=== PATIENT | female | born 2000 | race Caucasian/White ===

== ENCOUNTER → 2020-01-15 | Outpatient (CLI) | payer BC ==
--- NOTE | 2020-01-15 16:10 | Diagnostic Imaging Report ---
PROCEDURE: US Non-ob pelvis comp/trans. TECHNIQUE: Multiple real-time grayscale images were obtained of the pelvis in various projections endovaginally. Transabdominal imaging was also performed. INDICATION: IUD complication. FINDINGS: Uterus measures 6.8 x 3.5 x 4.5 cm. Endometrium is 3 mm in thickness. IUD is centered within the endometrial canal. No myometrial mass is detected. Right ovary measures 3.6 x 2.1 x 2.7 cm and the left ovary measures 3.5 x 2.3 x 2.3 cm. Both ovaries contain follicles. There is blood flow to both ovaries. No adnexal mass or free fluid is seen apart from a small amount in the posterior cul-de-sac. IMPRESSION: Satisfactorily located IUD. No acute abnormality is detected. Dictated by: Dictated on workstation # [id number]
== END ==
LOC: RAD 11:22
PROVIDERS: ATTEND Obstetrics & Gynecology
DX: T83.39XA Other mechanical complication of intrauterine contraceptive device, initial encounter (principal); R10.2 Pelvic and perineal pain
CPT/HCPCS: 76830; 76856

== ENCOUNTER 2020-08-22 02:49 | Emergency (ER) | payer BC ==
[~2020-08-22] VITALS: Ht 154.9 cm; Wt 58.1 kg
[2020-08-22] MEDS ORDERED: HYDROcodone/APAP 5 MG/325 MG (LORTAB) TAB PO ONE (03:45)
[2020-08-22] MEDS ORDERED: KETOROLAC 30 MG/ML VIAL IM ONE (03:45)
[2020-08-22] MEDS ORDERED: BENZONATATE 100 MG (TESSALON) CAPSULE PO ONE (03:45)
[2020-08-22] MEDS ORDERED: RX-ALBUTEROL INHALER (VENTOLIN HFA) 18 GM IH STA (03:46)
[2020-08-22] MEDS ORDERED: PROMETHAZINE/ CODEINE SYRUP 5 ML UDC PO ONE (04:00)
[2020-08-22] MEDS ORDERED: PROM5SYR PO (05:48)
[2020-08-22] MEDS ORDERED: BENZ100C18 PO (05:48)
[2020-08-22] MEDS ORDERED: AZIT250T12 PO (05:48)
--- NOTE | 2020-08-22 05:49 | ED Respiratory ---
General Chief Complaint: Respiratory Problems Stated Complaint: COUGH,SOB Nursing Triage Note: PT ARRIVED BY PRIVATE VEHICLE WITH CHIEF COMPLAINT OF COUGH AND SOB. PT WAS ALERT, ORIENTED X 4 AND AMBULATORY. PT STATED THAT HER COUGH STARTED WEEKS AGO WITH ALLERGIES, BUT WORSE TWO DAYS AGO. COUGH IS CONSTANT AND PRODUCTIVE CLEAR WITH SNOT PT STATED. PT HAS TRIED COUGH SYRUP, COUGH DROPS, NASAL SPRAYS AND NOTHING IS WORKING. PT HAS CHEST PAIN WHEN BREATHING WITH PAIN AT A 6. PT VAPES DAILY, HAS PMH OF ANXIETY AND HX OF ASTHMA A CHILD. PT HAD TONSILS REMOVED. PT'S VITAL SIGNS WERE DONE ON ARRIVAL AND GIVEN BASIN, BECAUSE OF HACKING UP MUCOUS. Source: patient Exam Limitations: no limitations History of Present Illness Date Seen by Provider: Aug 23, 2020 Time Seen by Provider: 03:35 Initial Comments This 20-year-old young lady presents to the emergency room with persistent cough, shortness of breath, and pleuritic type central chest pain for about the past week. She is afebrile. She has been unable to sleep due to the symptoms. She has tried multiple hgyp-pdp-otdbkht medicaticess. She is nauseated and gagging with the cough. Cough is very disruptive, interfering with her speech and the exam. She does not have any albuterol at home. She is observed to sometimes be coughing up thick mucus/sputum and occasionally regurgitating with posttussive gagging. Allergies and Home Medications Allergies Coded Allergies: No Known Drug Allergies (Unverified , 08/22/20) Home Medications Azithromycin 250 Mg Tablet, 250 MG PO UD TAKE 2 TABLETS ON DAY ONE THEN TAKE 1 TABLET DAILY FOR FOUR MORE DAYS Prescribed by: JEWEL AVILA on 08/22/20 0548 Benzonatate 100 Mg Capsule, 200 MG PO TID Prescribed by: JEWEL AVILA on 08/22/20 0548 Promethazine HCl/Codeine 5 Ml Syrup, 5 ML PO Q6H PRN for COUGH Prescribed by: JEWEL AVILA on 08/22/20 0549 Patient Home Medication List Home Medication List Reviewed: Yes Review of Systems Review of Systems Constitutional: no symptoms reported EENTM: no symptoms reported Respiratory: see HPI Cardiovascular: no symptoms reported Gastrointestinal: no symptoms reported Genitourinary: no symptoms reported : No Musculoskeletal: no symptoms reported Skin: no symptoms reported Psychiatric/Neurological: No Symptoms Reported Hematologic/Lymphatic: No Symptoms Reported Immunological/Allergic: no symptoms reported Past Mrrezit-Wpwwli-Rahtuc Hx Past Med/Social Hx: Reviewed Nursing Past Med/Soc Hx Patient Social History Alcohol Use: Occasionally Uses Recreational Drug Use: No Smoking Status: Current Everyday Smoker Type Used: Electronic/Vapor 2nd Hand Smoke Exposure: Yes Recent Foreign Travel: No Contact w/Someone Who Travel: No Recent Infectious Disease Expo: No Recent Hopitalizations: No Physical Abuse: No Sexual Abuse: No Mistreated: No Fear: No Seasonal Allergies Seasonal Allergies: Yes Past Medical History Surgeries: Yes Tonsillectomy Respiratory: Yes Asthma Cardiac: No Neurological: No : No Reproductive Disorders: No Genitourinary: Yes Kidney Stones Gastrointestinal: No Musculoskeletal: No Endocrine: No HEENT: No Cancer: No Psychosocial: Yes Anxiety Integumentary: No Blood Disorders: No Physical Exam Vital Signs - First Documented 08/22/20 03:00 Temp 36.3 Pulse 82 Resp 16 B/P (MAP) 136/81 (99) Pulse Ox 98 O2 Delivery Room Air Capillary Refill : Less Than 3 Seconds Height: '" Weight: lbs. oz. kg; 24.00 BMI Method: General Appearance: WD/WN, no apparent distress HEENT: PERRL/EOMI, normal ENT inspection, TMs normal, pharynx normal Neck: normal inspection Respiratory: lungs clear, normal breath sounds, no respiratory distress, no accessory muscle use, other (hacking, disruptive cough. Prolonged expiratory phase.) Cardiovascular: regular rate, rhythm, no edema, no murmur Gastrointestinal: normal bowel sounds, non tender, soft Extremities: normal inspection, no pedal edema Neurologic/Psychiatric: cutter in II-XII nml as tested, no motor/sensory deficits, alert, normal mood/affect, oriented x 3 Skin: normal color, warm/dry Progress/Results/Core Measures Suspected Sepsis Recent Fever Within 48 Hours: No Infection Criteria Present: Suspected New Infection New/Unexplained Altered Menta: No Sepsis Screen: No Definite Risk SIRS Temperature: Pulse: 82 Respiratory Rate: 16 Blood Pressure 136 /81 Mean: 99 Results/Orders Lab Results Laboratory Tests Test 08/22/20 03:39 Range/Units Coronavirus (COVID-19)(PCR) Negative Negative Micro Results Microbiology 08/22/20 Influenza Types A,B Antigen (COLLEEN) - Final, Complete My Orders Orders - JEWEL POWERS MD Ketorolac Injection (Toradol Injection) (08/22/20 03:45) Hydrocodone/Apap 5/325 Tablet (Lortab 5 (08/22/20 03:45) Benzonatate Capsule (Tessalon Perles) (08/22/20 03:45) Rx-Albuterol Inhaler (Rx-Ventolin Hfa) (08/22/20 03:46) Promethazine/ Codeine Syrup (Phenergan W (08/22/20 04:00) Influenza A And B Antigens (08/22/20 04:27) Coronavirus Sars-Cov-2 So 2019 (08/22/20 04:27) Medications Given in ED Vital Signs/I&O 08/22/20 08/22/20 03:00 06:34 Temp 36.3 35.8 Pulse 82 95 Resp 16 18 B/P (MAP) 136/81 (99) 101/75 Pulse Ox 98 98 O2 Delivery Room Air Room Air Capillary Refill : Less Than 3 Seconds Blood Pressure Mean: 99 Progress Note : Progress Note patient was treated with multiple medications including hydrocodone, Phenergan with codeine, Tessalon Perles, albuterol, and Toradol. She had near resolution of her symptoms. Rapid influenza screen was negative. COVID-19 swab was obtained. Departure Impression Primary Impression: Acute bronchitis Qualified Codes: J20.9 - Acute bronchitis, unspecified Additional Impressions: Productive cough Person under investigation for COVID-19 Disposition: 01 HOME, SELF-CARE Condition: Improved Departure-Patient Inst. Decision time for Depature: 05:45 Referrals: BETY MCCULLOUGH MD (PCP/Family) Primary Care Physician Patient Instructions: Acute Bronchitis, Coronavirus Disease 2019 (COVID-19) (DC) Add. Discharge Instructions: Stop vaping and smoking. Drink plenty of clear liquids. Complete your antibiotic as prescribed. You may use Tessalon Perles for cough suppression when you need to stay awake. Phenergan With Codeine may be used when you are trying to sleep. Use your inhaler up to 4 puffs and a 4 hour period of time for wheezing or shortness of breath. Follow-up with your primary care provider or return to care if you have any further problems or concerns. Stay in quarantine until the result of your COVID-19 testing is known. All discharge instructions reviewed with patient and/or family. Voiced understanding. Scripts Azithromycin (Azithromycin) 250 Mg Tablet 250 MG PO UD, #6 TAB TAKE 2 TABLETS ON DAY ONE THEN TAKE 1 TABLET DAILY FOR FOUR MORE DAYS Prov: JEWEL POWERS MD 08/22/20 Promethazine HCl/Codeine (Prometh-Codein 6.25-10 mg/5 ml) 5 Ml Syrup 5 ML PO Q6H PRN for COUGH, #100 ML Prov: JEWEL POWERS MD 08/22/20 Benzonatate (TESSALON PERLES) 100 Mg Capsule 200 MG PO TID, #20 CAP Prov: JEWEL POWERS MD 08/22/20 JEWEL POWERS MD Aug 22, 2020 05:49
[2020-08-22 06:34] VITALS: BP 101/75
== END 2020-08-22 06:34 | disposition home or self-care (01) ==
LOC: EDUNIT# 02:49 → ER 02:51
DX: J20.9 Acute bronchitis, unspecified (principal); J45.909 Unspecified asthma, uncomplicated; F17.290 Nicotine dependence, other tobacco product, uncomplicated; Z20.828 Contact with and (suspected) exposure to other viral communicable diseases
CPT/HCPCS: 87804; U0002; 87635

== ENCOUNTER 2020-10-25 04:36 | Emergency (ER) | payer BC ==
[~2020-10-25] VITALS: Ht 154.9 cm; Wt 57.0 kg
[~2020-10-25 04:36] MED LIST: AZIT250T12 PO; BENZ100C18 PO; PROM5SYR PO
--- NOTE | 2020-10-25 05:06 | ED Respiratory ---
General Chief Complaint: Respiratory Problems Stated Complaint: COUGH, SOA Source: patient History of Present Illness Date Seen by Provider: Oct 25, 2020 Time Seen by Provider: 04:55 Initial Comments PT ARRIVES VIA POV FROM HOME C/O NON-PRODUCTIVE COUGH, NASAL CONGESTION, CLEAR NASAL DRAINAGE, WATERY /ITCHY EYES AND SHORTNESS OF BREATH COUGHS UNTIL SHE THROWS UP THIS HAS BEEN GOING ON FOR SEVERAL MONTHS--SINCE STATES AT NIGHT SHE GETS "COUGHING FITS" AND CAN'T STOP NO FEVER THROAT IS ONLY SORE FROM COUGHING PT HAS SEEN AT [facility] MULTIPLE TIMES FOR THIS, AND WAS SEEN HERE IN AUGUST FOR SAME. HAS ALSO BEEN SEEN ONCE AT [facility] FOR THIS PT HAS BEEN TAKING ROBITUSSIN, CLARITIN, ZYRTEC, SINGULAIR, NASAL SPRAYS--ALL W ITHOUT RELIEF. HAS BEEN ON ANTIBIOTICS, ROUND OF PREDNISONE-ALL WITHOUT IMPROVEMENT HAS ALSO BEEN USING ALBUTEROL INHALER TID WITHOUT IMPROVEMENT ( HAS NOT BEEN USING SPACER) PT HAS NOT HAD ANY TESTS OF ANY KIND PT HAS A CAT IN THE HOUSE. HAS HAD THIS PARTICULAR CAT SINCE MARCH OF THIS YEAR. BUT HAS HAD A CAT OFF AN ON OVER THE LAST 8 YEARS. L LIVES WITH A ROOM MATE HAD ASTHMA CHILD--NO PROBLEMS SINCE AGE 8 HAS HX OF ANXIETY PT DOES VAPE PT IS [employer], BUT ALSO WORKS AT [employer] ( MULTIPLE COVID-19 CASES THERE) AND GETS TESTED TWICE A WEEK, AND HAS NEVER TESTED POSITIVE, OR HAD ANY OTHER SYMPTOMS OF COVID-19 SUCH LOSS OF TASTE/SMELL OR FEVER, OR GI SYMPTOMS (COUGHS UNTIL SHE THROWS UP, BUT DOES NOT HAVE ACTUAL NAUSEA/VOMITING, AND NO DIARRHEA, ETC. LMP 3 WEEKS AGO. NORMAL. HAS IUD IN PLACE PCP: [facility]. Allergies and Home Medications Allergies Coded Allergies: No Known Drug Allergies (Unverified , 08/22/20) Home Medications Azelastine HCl 137 Mcg/0.137 Ml Capulin.pump, 137 MCG NS BID Prescribed by: MAYNOR BAER on 10/25/20 0605 Azithromycin 250 Mg Tablet, 250 MG PO UD TAKE 2 TABLETS ON DAY ONE THEN TAKE 1 TABLET DAILY FOR FOUR MORE DAYS Prescribed by: JEWEL AVILA on 08/22/20 0548 Benzonatate 100 Mg Capsule, 200 MG PO TID Prescribed by: JEWEL AVILA on 08/22/2048 Benzonatate 100 Mg Capsule, 200 MG PO TID Prescribed by: MAYNOR BAER on 10/25/20604 Methylprednisolone 4 Mg Tab.ds.pk, 4 MG PO UD PER DOSE PACK INSTRUCTIONS Prescribed by: MAYNOR BAER on 10/25/20604 Promethazine HCl/Codeine 5 Ml Syrup, 5 ML PO Q6H PRN for COUGH Prescribed by: JEWEL AVILA on 08/22/2049 Promethazine HCl/Codeine 5 Ml Syrup, 5 ML PO Q4H Prescribed by: MAYNOR BAER on 10/25/20604 Triamcinolone Acetonide 10.8 Ml Capulin, 2 SPRAYS NS BID Prescribed by: MAYNOR BAER on 10/25/20604 Patient Home Medication List Home Medication List Reviewed: Yes Review of Systems Review of Systems Constitutional: No chills, No diaphoresis, No fever EENTM: see HPI, tearing, nose congestion Respiratory: see HPI, cough; No phlegm; short of breath Cardiovascular: other (CHEST GETS SORE FROM COUGHING) Gastrointestinal: see HPI Genitourinary: no symptoms reported Musculoskeletal: other (CHEST AND BACK MUSCLES GET SORE FROM COUGHING) Skin: no symptoms reported Psychiatric/Neurological: Headache (ONLY FROM COUGHING.) Past Bsvyxou-Bcgfmc-Kqyvyw Hx Past Med/Social Hx: Reviewed and Corrections made Patient Social History Type Used: Electronic/Vapor 2nd Hand Smoke Exposure: Yes Recent Foreign Travel: No Contact w/Someone Who Travel: No Recent Hopitalizations: No Seasonal Allergies Seasonal Allergies: Yes Past Medical History Surgeries: Yes Tonsillectomy Respiratory: Yes Asthma Cardiac: No Neurological: No Reproductive Disorders: No Genitourinary: Yes Kidney Stones Gastrointestinal: No Musculoskeletal: No Endocrine: No HEENT: No Cancer: No Psychosocial: Yes Anxiety Integumentary: No Blood Disorders: No Physical Exam Vital Signs - First Documented 10/25/20 10/25/20 05:02 05:05 Temp 36.0 Pulse 84 Resp 20 B/P (MAP) 108/68 (81) Pulse Ox 100 O2 Delivery Room Air Capillary Refill : Height: '" Weight: lbs. oz. kg; 24.00 BMI Method: General Appearance: WD/WN, no apparent distress, other (CONSTANT DRY COUGH) Eyes: Bilateral Eye Scleral Icterus HEENT: PERRL/EOMI, other (NASAL CONGESTION AND CLEAR RHINORRHEA. 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, no motor/sensory deficits, alert, oriented x 3 Skin: normal color, warm/dry; No rash Progress/Results/Core Measures Suspected Sepsis SIRS Temperature: Pulse: Respiratory Rate: Blood Pressure / Mean: Results/Orders Lab Results Laboratory Tests Test 10/25/20 05:02 Range/Units Coronavirus 2018 (LEIDY) Negative Negative Micro Results Microbiology 10/25/20 Influenza Types A,B Antigen (COLLEEN) - Final, Complete My Orders Orders - MAYNOR BAER DO Influenza A And B Antigens (10/25/20 04:55) Coronavirus Sars-Cov-2 So 2018 (10/25/20 04:55) Covid 19 Inhouse Test (10/25/20 04:55) Chest 1 View, Ap/Pa Only (10/25/20 05:14) Benzonatate Capsule (Tessalon Perles) (10/25/20 05:15) Prednisone Tablet (Deltasone Tablet) (10/25/20 05:15) Promethazine/ Codeine Syrup (Phenergan W (10/25/20 05:30) Albuterol/Ipratropium Inhaler (Combivent (10/25/20 09:00) Fluticasone/Salmeterol 115/21 (Advair Hf (10/25/20 08:00) Rt Request For Service (10/25/20 05:24) Albuterol/Ipratropium Inhaler (Combivent (10/25/20 05:25) Diphenhydramine Injection (Benadryl Inje (10/25/20 06:15) Ns Iv 1000 Ml (Sodium Chloride 0.9%) (10/25/20 06:16) Promethazine Injection (Phenergan Injec (10/25/20 06:15) Medications Given in ED Current Medications Medications Dose Ordered Sig/Aiden Route Start Time Stop Time Status Last Admin Dose Admin Albuterol/ Ipratropium 1 PUFF QID ONCE IH 10/25/20 09:00 10/25/20 09:01 10/25/20 05:32 4 GM Prednisone 40 mg ONCE ONCE PO 10/25/20 05:15 10/25/20 05:17 DC 10/25/20 05:35 40 MG Promethazine HCl/ Codeine 5 ml ONCE ONCE PO 10/25/20 05:30 10/25/20 05:31 DC 10/25/20 05:36 5 ML Salmeterol Xinafoate/ Fluticasone 2 PUFFS RTBID ONCE IH 10/25/20 08:00 10/25/20 08:01 10/25/20 05:32 2 PUFF Vital Signs/I&O 10/25/20 10/25/20 10/25/20 05:02 05:05 06:15 Temp 36.0 36.3 Pulse 84 79 Resp 20 20 B/P (MAP) 108/68 (81) 106/72 (81) Pulse Ox 100 100 O2 Delivery Room Air Room Air Capillary Refill : Progress Note : Progress Note PLACED IN ISOLATION ROOM PPE WORN AT ALL TIMES COVIDJ-19 TESTING PERFORMED GIVEN PREDNISONE, TESSALON, PHENERGAN/CODEINE COUGH SYRUP, COMBIVENT AND ADVAIR INHALER TREATMENTS--NO SIGNIFICANT IMPROVEMENT O2 SATS 100% THROUGHOUT ER STAY, NO ACTUAL DYSPNEA OR TACHYPNEA OR ABNORMAL VITALS. Diagnostic Imaging Comments CXR--NO ACUTE PROCESS, PENDING RADIOLOGIST REVIEW Reviewed: Reviewed by Me Departure Communication (Admissions) 0600--SPOKE WITH DR. PLEITEZ, MOTORCYCLE SUBASSEMBLER, HE WILL SEE PT IN OFFICE IN FOLLOW UP Impression Primary Impression: Persistent cough for 3 weeks or longer Additional Impressions: Allergic rhinitis HX OF CHILDHOOD ASTHMA Person under investigation for COVID-19 Disposition: 01 HOME, SELF-CARE Condition: Stable Departure-Patient Inst. Referrals: GAVIN PLEITEZ KATHLEEN M MD Patient Instructions: Cough, Adult ED, Seasonal Allergies (DC), Coronavirus Disease 2019 (COVID-19) ED Add. Discharge Instructions: STOP ALL YOUR CURRENT MEDICATIONS USE ADVAIR INHALER 2 PUFFS TWICE A DAY USE COMBIVENT INHALER 2 PUFFS EVERY 4 HOURS NEEDED USE SPACER AT ALL TIMES WITH YOUR INHALERS YOU SHOULD TRY TO REMOVE THE CAT FROM THE HOME, THEN THOROUGHLY CLEAN ALL SURFACES AND FABRICS, RUGS/CARPETS, ETC. IN THE HOME NO VAPING OR SMOKING OF ANY KIND FOLLOW UP WITH DR. PLEITEZ, MOTORCYCLE SUBASSEMBLER, THIS WEEK FOR FURTHER CARE--CALL TODAY TO MAKE AN APPOINTMENT All discharge instructions reviewed with patient and/or family. Voiced understanding. Scripts Promethazine HCl/Codeine (Prometh-Codein 6.25-10 mg/5 ml) 5 Ml Syrup 5 ML PO Q4H for Cough, #120 ML Prov: MAYNOR BAER DO 10/25/20 Benzonatate (TESSALON PERLES) 100 Mg Capsule 200 MG PO TID, #30 CAP Prov: MAYNOR BAER DO 10/25/20 Triamcinolone Acetonide (Nasacort) 10.8 Ml Capulin 2 SPRAYS NS BID, #1 SPRAY Prov: MAYNOR BAER DO 10/25/20 Azelastine HCl (Azelastine HCl) 137 Mcg/0.137 Ml Capulin.pump 137 MCG NS BID, #1 EA Prov: MAYNOR BAER DO 10/25/20 Methylprednisolone (Medrol) 4 Mg Tab.ds.pk 4 MG PO UD for 6 Days, #21 PKG PER DOSE PACK INSTRUCTIONS Prov: MAYNOR BAER DO 10/25/20 MAYNOR BAER DO Oct 25, 2020 05:06
[2020-10-25] MEDS ORDERED: BENZONATATE 100 MG (TESSALON) CAPSULE PO SCH (05:15)
[2020-10-25] MEDS ORDERED: predniSONE 20 MG TAB PO ONE (05:15)
[2020-10-25] MEDS ORDERED: ALBUTEROL/IPRATROP (COMBIVENT RESPIMAT) 4 GM INHALER ONE (05:25)
[2020-10-25] MEDS ORDERED: PROMETHAZINE/ CODEINE SYRUP 5 ML UDC PO ONE (05:30)
[2020-10-25] MEDS ORDERED: AZEL137S11 NS (06:05)
[2020-10-25] MEDS ORDERED: PROM5SYR PO (06:05)
[2020-10-25] MEDS ORDERED: TRIA10.8 NS (06:05)
[2020-10-25] MEDS ORDERED: METH4TAB PO (06:05)
[2020-10-25] MEDS ORDERED: BENZ100C18 PO (06:05)
[2020-10-25 06:15] VITALS: BP 106/72
[2020-10-25] MEDS ORDERED: PROMETHAZINE INJ 25 MG/ML (PHENERGAN) AMP ONE (06:15)
[2020-10-25] MEDS ORDERED: diphenhydrAMINE 50 MG/ML INJ (BENADRYL) ONE (06:15)
[2020-10-25] MEDS ORDERED: NS IV 1000 ML 0 ML ONE (06:16)
--- NOTE | 2020-10-25 07:19 | Diagnostic Imaging Report ---
EXAMINATION: Chest radiograph, portable AP view. DATE: 10/25/2020 6:07 AM INDICATION: 20-year-old female, cough. COMPARISON: None. FINDINGS: Heart size and mediastinal contours are unremarkable. There is no identified pneumothorax. There is no large pleural effusion. There is no identified focal airspace consolidation. IMPRESSION: No identified acute cardiopulmonary abnormality. Dictated by: Dictated on workstation # [id number]
[2020-10-25] MEDS ORDERED: ADVAIR HFA 115/21 MCG INHALER 8 GM IH ONE (08:00)
[2020-10-25] MEDS ORDERED: ALBUTEROL/IPRATROP (COMBIVENT RESPIMAT) 4 GM INHALER IH ONE (09:00)
== END 2020-10-25 06:16 | disposition home or self-care (01) ==
LOC: EDUNIT# 04:36 → ER 04:39
DX: R05 Cough (principal); J45.909 Unspecified asthma, uncomplicated; Z20.828 Contact with and (suspected) exposure to other viral communicable diseases; Z77.22 Contact with and (suspected) exposure to environmental tobacco smoke (acute) (chronic); Z79.52 Long term (current) use of systemic steroids
CPT/HCPCS: 71045; 87804; 99283; U0002; 87635

== ENCOUNTER 2021-02-20 19:30 | Emergency (ER) | payer BC ==
[~2021-02-20] VITALS: Ht 155 cm; Wt 57.2 kg
[2021-02-20] MEDS ORDERED: NS IV 1000 ML 1,000 ML ONE (19:39)
[2021-02-20] MEDS ORDERED: ONDANSETRON 4 MG/2 ML (SDV) Z0FRAN ONE (19:39)
[2021-02-20] MEDS ORDERED: LORazepam INJ 2 MG/ML (ATIVAN) VIAL ONE (19:39)
--- NOTE | 2021-02-20 20:12 | ED GI ---
General Chief Complaint: Abdominal/GI Problems Stated Complaint: COVID+,VOMITTING,CP,STOMACH PAIN,DARK URINE Source of Information: Patient Exam Limitations: No Limitations History of Present Illness Date Seen by Provider: Feb 20, 2021 Time Seen by Provider: 19:50 Initial Comments To ER with nausea vomiting abdominal cramping and alternating constipation and diarrhea. This is been ongoing for couple of weeks, she is urgent care and was given a prescription for 2 antibiotics for "an infection" based on leukocytosis. She is not sure where the infection was. She then followed up at [facility] today and had those 2 medications changed to Cipro. She has had persistent nausea and vomiting despite using her Zofran at home and Phenergan. History of Anuja fundoplication for GERD as a child. Also takes Lexapro for anxiety. She was told today her symptoms were likely irritable bowel syndrome. 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 Timing/Duration: Constant, Getting Worse Severity/Quality: Moderate Location: Epigastric Radiation: No Radiation Activities at Onset: None Associated Symptoms: Denies Symptoms Allergies and Home Medications Allergies Coded Allergies: No Known Drug Allergies (Unverified , 08/22/20) Home Medications Azelastine HCl 137 Mcg/0.137 Ml [place].pump, 137 MCG NS BID Prescribed by: MAYNOR BAER on 10/25/20604 Azithromycin 250 Mg Tablet, 250 MG PO UD TAKE 2 TABLETS ON DAY ONE THEN TAKE 1 TABLET DAILY FOR FOUR MORE DAYS Prescribed by: JEWEL AVILA on 08/22/20547 Benzonatate 100 Mg Capsule, 200 MG PO TID Prescribed by: JEWEL AVILA on 08/22/20547 Benzonatate 100 Mg Capsule, 200 MG PO TID Prescribed by: MAYNOR BAER on 10/25/20604 Methylprednisolone 4 Mg Tab.ds.pk, 4 MG PO UD PER DOSE PACK INSTRUCTIONS Prescribed by: MAYNOR BAER on 10/25/20604 Promethazine HCl/Codeine 5 Ml Syrup, 5 ML PO Q6H PRN for COUGH Prescribed by: JEWEL AVILA on 08/22/20 0549 Promethazine HCl/Codeine 5 Ml Syrup, 5 ML PO Q4H Prescribed by: MAYNOR BAER on 12/15/20 0605 Triamcinolone Acetonide 10.8 Ml [place], 2 SPRAYS NS BID Prescribed by: MAYNOR BAER on 10/25/20 0605 Patient Home Medication List Home Medication List Reviewed: Yes Review of Systems Review of Systems Constitutional: see HPI EENTM: No Symptoms Reported Respiratory: No Symptoms Reported Cardiovascular: See HPI Gastrointestinal: See HPI, Abdominal Pain, Constipated, Diarrhea, Nausea, Vomiting Genitourinary: No Symptoms Reported Musculoskeletal: no symptoms reported Skin: no symptoms reported Psychiatric/Neurological: No Symptoms Reported Endocrine: No Symptoms Reported Hematologic/Lymphatic: No Symptoms Reported Past Rrttigc-Nxdlos-Bmahtm Hx Patient Social History Type Used: Electronic/Vapor 2nd Hand Smoke Exposure: No Recent Hopitalizations: No Seasonal Allergies Seasonal Allergies: Yes Past Medical History Surgeries: Yes (GERD ) Tonsillectomy Respiratory: Yes Asthma Cardiac: No Neurological: No Reproductive Disorders: No Genitourinary: Yes Kidney Stones Gastrointestinal: No Musculoskeletal: No Endocrine: No HEENT: No Cancer: No Psychosocial: Yes Anxiety Integumentary: No Blood Disorders: No Physical Exam Vital Signs Capillary Refill : Height/Weight/BMI Height: '" Weight: lbs. oz. kg; 23.00 BMI Method: General Appearance: WD/WN, no apparent distress Respiratory: no respiratory distress, no accessory muscle use Cardiovascular: no murmur, tachycardia Gastrointestinal: normal bowel sounds, soft, tenderness Neurologic/Psychiatric: alert, normal mood/affect, oriented x 3 Skin: normal color, warm/dry Progress/Results/Core Measures Results/Orders Lab Results Laboratory Tests Test 02/20/21 19:50 02/20/21 20:11 Range/Units White Blood Count 11.0 4.3-11.0 10^3/uL Red Blood Count 4.93 3.80-5.11 10^6/uL Hemoglobin 14.3 11.5-16.0 g/dL Hematocrit 42 35-52 % Mean Corpuscular Volume 86 80-99 fL Mean Corpuscular Hemoglobin 29 25-34 pg Mean Corpuscular Hemoglobin Concent 34 32-36 g/dL Red Cell Distribution Width 12.7 10.0-14.5 % Platelet Count 362 130-400 10^3/uL Mean Platelet Volume 9.8 9.0-12.2 fL Immature Granulocyte % (Auto) 0 % Neutrophils (%) (Auto) 66 42-75 % Lymphocytes (%) (Auto) 25 12-44 % Monocytes (%) (Auto) 7 0-12 % Eosinophils (%) (Auto) 2 0-10 % Basophils (%) (Auto) 0 0-10 % Neutrophils # (Auto) 7.2 1.8-7.8 10^3/uL Lymphocytes # (Auto) 2.7 1.0-4.0 10^3/uL Monocytes # (Auto) 0.8 0.0-1.0 10^3/uL Eosinophils # (Auto) 0.2 0.0-0.3 10^3/uL Basophils # (Auto) 0.0 0.0-0.1 10^3/uL Immature Granulocyte # (Auto) 0.0 0.0-0.1 10^3/uL Sodium Level 140 135-145 MMOL/L Potassium Level 3.2 L 3.6-5.0 MMOL/L Chloride Level 104 98-107 MMOL/L Carbon Dioxide Level 24 21-32 MMOL/L Anion Gap 12 5-14 MMOL/L Blood Urea Nitrogen 6 L 7-18 MG/DL Creatinine 0.99 0.60-1.30 MG/DL Estimat Glomerular Filtration Rate > 60 BUN/Creatinine Ratio 6 Glucose Level 95 70-105 MG/DL Calcium Level 9.7 8.5-10.1 MG/DL Corrected Calcium 8.5-10.1 MG/DL Total Bilirubin 0.5 0.1-1.0 MG/DL Aspartate Amino Transf (AST/SGOT) 27 5-34 U/L Alanine Aminotransferase (ALT/SGPT) 26 0-55 U/L Alkaline Phosphatase 104 40-136 U/L C-Reactive Protein High Sensitivity 0.24 0.00-0.50 MG/DL Total Protein 7.7 6.4-8.2 GM/DL Albumin 4.8 H 3.2-4.5 GM/DL Procalcitonin 0.02 <0.10 NG/ML Serum Test, Qualitative NEGATIVE NEGATIVE Urine Color YELLOW Urine Clarity CLEAR Urine pH 7.0 5-9 Urine Specific [place] 1.020 1.016-1.022 Urine Protein NEGATIVE NEGATIVE Urine Glucose (UA) NEGATIVE NEGATIVE Urine Ketones NEGATIVE NEGATIVE Urine Nitrite NEGATIVE NEGATIVE Urine Bilirubin NEGATIVE NEGATIVE Urine Urobilinogen 0.2 < = 1.0 MG/DL Urine Leukocyte Esterase 1+ H NEGATIVE Urine RBC (Auto) TRACE-I NEGATIVE Urine RBC 2-5 H /HPF Urine WBC 0-2 /HPF Urine Squamous Epithelial Cells 5-10 /HPF Urine Crystals NONE /LPF Urine Bacteria TRACE /HPF Urine Casts NONE /LPF Urine Mucus NEGATIVE /LPF Urine Culture Indicated NO My Orders Orders - PATRICE CHAVEZ APRN Ns Iv 1000 Ml (Sodium Chloride 0.9%) (02/20/21 20:15) Lorazepam Injection (Ativan Injection) (02/20/21 20:15) Ondansetron Injection (Zofran Injectio (02/20/21 20:15) Antacid Suspension (Mylanta Suspension (02/20/21 20:15) Lidocaine 2% Viscous 15 Ml (Xylocaine Vi (02/20/21 20:15) Cbc With Automated Diff (02/20/21 20:07) Comprehensive Metabolic Panel (02/20/21 20:07) Hs C Reactive Protein (02/20/21 20:07) Procalcitonin (Pct) (02/20/21 20:07) Ua Culture If Indicated (02/20/21 20:07) Ct Abdomen/Pelvis W (02/20/21 20:07) Hcg,Qualitative Serum (02/20/21 20:07) Iohexol Injection (Omnipaque 350 Mg/Ml 1 (02/20/21 20:45) Received Contrast (Hold Metformin- Contr (02/20/21 20:45) Sodium Chloride Flush (Catheter Flush Sy (02/20/21 20:45) Ns (Ivpb) (Sodium Chloride 0.9% Ivpb Bag (02/20/21 20:45) Rx-Lorazepam (Rx-Ativan) (02/20/21 21:08) Promethazine Injection (Phenergan Injec (02/20/21 21:30) Medications Given in ED Current Medications Medications Dose Ordered Sig/Aiden Route Start Time Stop Time Status Last Admin Dose Admin Al Hydrox/Mg Hydrox/Simethicone 30 ml ONCE ONCE PO 02/20/21 20:15 02/20/21 20:16 DC 02/20/21 20:21 30 ML Iohexol 100 ml ONCE ONCE IV 02/20/21 20:45 02/20/21 20:46 DC 02/20/21 20:51 72 ML Lidocaine HCl 10 ml ONCE ONCE PO 4/12/21 20:15 02/20/21 20:16 DC 02/20/21 20:21 10 ML Lorazepam 0.5 mg ONCE PRN IVP 02/20/21 20:15 02/20/21 19:50 0.5 MG Ondansetron HCl 4 mg ONCE ONCE IVP 02/20/21 20:15 02/20/21 20:16 DC 02/20/21 19:50 4 MG Sodium Chloride 10 ml NEEDED PRN IV 02/20/21 20:45 02/20/21 20:52 10 ML Sodium Chloride 100 ml ONCE ONCE IV 02/20/21 20:45 02/20/21 20:46 DC 02/20/21 20:52 80 ML Diagnostic Imaging Diagonstic Imaging: CT Comments NAME: [facility] REC#: [id number] PT STATUS: REG ER : 2000 PHYSICIAN: PATRICE CHAVEZ APRN ADMIT DATE: 02/20/21/ER Draft Date of Exam:02/20/21 CT ABDOMEN/PELVIS W PROCEDURE: CT abdomen and pelvis with contrast. TECHNIQUE: Multiple contiguous axial images were obtained through the abdomen and pelvis after administration of intravenous contrast. Auto Exposure Controls were utilized during the CT exam to meet ALARA standards for radiation dose reduction. All CT scans use one or more of the following dose optimizing techniques: automated exposure control, MA and/or KvP adjustment based on patient size and exam type or iterative reconstruction. INDICATION: Nausea and emesis No focal hepatic, gallbladder, pancreatic, adrenal gland or splenic abnormality is identified and the kidneys are unremarkable. There is no evidence of free fluid within the abdomen or pelvis. No bowel obstruction is identified. There does appear to be a dominant left ovarian cyst reaching 3.5 cm in diameter. Intrauterine device is present. There is no significant pelvic free fluid. No organized fluid collection is identified. IMPRESSION: Dominant cyst in left ovary reaches 3.5 cm in diameter. Otherwise, no acute abnormality is identified. Dictated on workstation # [id number] Dict: 02/20/212105 Trans: 02/20/212109 [facility] [id number] Interpreted by: KAYLA BENITEZ MD Electronically signed by: Departure Communication (Admissions) Family Conversation Anxious dry heaving tearful on arrival. IV was established into the right AC by me. Gave 1 L of IV fluids, 0.5 mg lorazepam and 4 mg Zofran with almost immediate improvement in symptoms. Impression Primary Impression: Irritable bowel syndrome Disposition: 01 HOME, SELF-CARE Condition: Improved Departure-Patient Inst. Decision time for Depature: 21:06 Referrals: BETY MCCULLOUGH MD (PCP/Family) Primary Care Physician Patient Instructions: Irritable Bowel Syndrome Add. Discharge Instructions: 1. Return ER for any concerns 2. Follow-up with [facility]. They may wish to evaluate your gallbladder with ultrasound. All discharge instructions reviewed with patient and/or family. Voiced understanding. Copy Copies To 1: ANSHU JACKSON MD, [employer] Feb 20, 2021 20:12
[2021-02-20 20:14] LABS: BASOPHILS % (AUTO) 0 % (0-10); EOSINOPHILS # (AUTO) 0.2 10^3/uL (0.0-0.3); EOSINOPHILS % (AUTO) 2 % (0-10); HEMATOCRIT 42 % (35-52); HEMOGLOBIN 14.3 g/dL (11.5-16.0); LYMPHOCYTES # (AUTO) 2.7 10^3/uL (1.0-4.0); LYMPHOCYTES % (AUTO) 25 % (12-44); MEAN CORPUSCULAR HEMOGLOBIN 29 pg (25-34); MEAN CORPUSCULAR HGB CONC 34 g/dL (32-36); MEAN CORPUSCULAR VOLUME 86 fL (80-99); MEAN PLATELET VOLUME 9.8 fL (9.0-12.2); MONOCYTES # (AUTO) 0.8 10^3/uL (0.0-1.0); MONOCYTES % (AUTO) 7 % (0-12); NEUTROPHILS # (AUTO) 7.2 10^3/uL (1.8-7.8); NEUTROPHILS % (AUTO) 66 % (42-75); PLATELET COUNT 362 10^3/uL (130-400)
[2021-02-20] MEDS ORDERED: ANTACID SUSP 30 ML UDC (MYLANTA) PO ONE (20:15)
[2021-02-20] MEDS ORDERED: NS IV 1000 ML 1,000 ML IV SCH (20:15)
[2021-02-20] MEDS ORDERED: LIDOCAINE 2% VISCOUS 15 ML UDC PO ONE (20:15)
[2021-02-20] MEDS ORDERED: ONDANSETRON 4 MG/2 ML (SDV) Z0FRAN IVP ONE (20:15)
[2021-02-20] MEDS ORDERED: LORazepam INJ 2 MG/ML (ATIVAN) VIAL IVP PRN (20:15)
[2021-02-20 20:20] LABS: BILIRUBIN,URINE NEGATIVE (NEGATIVE); CLARITY,URINE CLEAR; COLOR,URINE YELLOW; GLUCOSE, URINE (UA) NEGATIVE (NEGATIVE); KETONES,URINE NEGATIVE (NEGATIVE); LEUKOCYTE ESTERASE ,URINE 1+ (NEGATIVE); NITRITE,URINE NEGATIVE (NEGATIVE); PROTEIN,URINE NEGATIVE (NEGATIVE)
[2021-02-20 20:29] LABS: BACTERIA,URINE TRACE /HPF; WBC,URINE 0-2 /HPF
[2021-02-20 20:30] LABS: ALANINE AMINOTRANSFERASE 26 U/L (0-55); ALBUMIN 4.8 GM/DL (3.2-4.5); ALKALINE PHOSPHATASE 104 U/L (40-136); BILIRUBIN,TOTAL 0.5 MG/DL (0.1-1.0); BUN/CREATININE RATIO 6; CALCIUM 9.7 MG/DL (8.5-10.1); CARBON DIOXIDE 24 MMOL/L (21-32); CHLORIDE 104 MMOL/L (98-107); CREATININE SERUM 0.99 MG/DL (0.60-1.30); GFR ESTIMATED > 60; GLUCOSE 95 MG/DL (70-105); POTASSIUM 3.2 MMOL/L (3.6-5.0); SODIUM 140 MMOL/L (135-145); TOTAL PROTEIN 7.7 GM/DL (6.4-8.2)
[2021-02-20] MEDS ORDERED: CATHETER FLUSH 10 ML SYR IV PRN (20:45)
[2021-02-20] MEDS ORDERED: IOHEXOL 350 MG/ML 100 ML (OMNIPAQUE 350) VIAL IV ONE (20:45)
[2021-02-20] MEDS ORDERED: HOLD METFORMIN - RECEIVED CONTRAST 20 ML VIAL IV SCH (20:45)
[2021-02-20] MEDS ORDERED: NS 100 ML (IVPB) BAG IV ONE (20:45)
[2021-02-20] MEDS ORDERED: RX-LORAZEPAM (ATIVAN) 0.5 MG TAB PPK#4 PO STA (21:08)
--- NOTE | 2021-02-20 21:11 | Diagnostic Imaging Report ---
PROCEDURE: CT abdomen and pelvis with contrast. TECHNIQUE: Multiple contiguous axial images were obtained through the abdomen and pelvis after administration of intravenous contrast. Auto Exposure Controls were utilized during the CT exam to meet ALARA standards for radiation dose reduction. All CT scans use one or more of the following dose optimizing techniques: automated exposure control, MA and/or KvP adjustment based on patient size and exam type or iterative reconstruction. INDICATION: Nausea and emesis No focal hepatic, gallbladder, pancreatic, adrenal gland or splenic abnormality is identified and the kidneys are unremarkable. There is no evidence of free fluid within the abdomen or pelvis. No bowel obstruction is identified. There does appear to be a dominant left ovarian cyst reaching 3.5 cm in diameter. Intrauterine device is present. There is no significant pelvic free fluid. No organized fluid collection is identified. IMPRESSION: Dominant cyst in left ovary reaches 3.5 cm in diameter. Otherwise, no acute abnormality is identified. Dictated by: Dictated on workstation # [id number]
[2021-02-20] MEDS ORDERED: PROMETHAZINE INJ 25 MG/ML (PHENERGAN) AMP IVP ONE (21:30)
[2021-02-20 21:44] VITALS: BP 139/93
== END 2021-02-20 21:44 | disposition home or self-care (01) ==
LOC: EDUNIT# 19:30 → ER 19:33
DX: K58.0 Irritable bowel syndrome with diarrhea (principal); J45.909 Unspecified asthma, uncomplicated; Z79.52 Long term (current) use of systemic steroids
CPT/HCPCS: 36415; 74177; 80053; 81000; 84145; 84703; 85025; 86141; 96361; 96374; 96375

== ENCOUNTER → 2021-02-20 | Outpatient (CLI) | payer BC ==
[~2021-02-20] MED LIST changes: +AZEL137S11 NS; +METH4TAB PO; +TRIA10.8 NS
--- NOTE | 2021-02-20 16:02 | Diagnostic Imaging Report ---
HISTORY: Severe cramping and abdominal pain. History of stones. COMPARISON: None available. TECHNIQUE: Frontal views of the abdomen. FINDINGS: No calcifications are seen in the region of the kidneys bilaterally on this radiograph. CT would be more sensitive. No calcifications are seen in the expected course of the ureters. An intrauterine device is noted. Bowel loops are nondistended. No large collection of free air is seen. No acute osseous abnormality is seen. IMPRESSION: 1. No renal or ureteral calcifications are seen radiographically. 2. No bowel obstruction. Dictated by: Dictated on workstation # [id number]
== END ==
LOC: RAD
PROVIDERS: ATTEND Nurse Practitioner Adult Health
DX: R10.9 Unspecified abdominal pain (principal); Z87.442 Personal history of urinary calculi
CPT/HCPCS: 74019

== ENCOUNTER → 2021-02-20 | Outpatient (CLI) | payer BC | LOC: RAD 14:06 | PROVIDERS: ATTEND Internal Medicine | DX: N39.0 Urinary tract infection, site not specified (principal) ==

== ENCOUNTER 2022-12-17 03:18 | Emergency (ER) | payer BC ==
[~2022-12-17] VITALS: Ht 155 cm; Wt 58.0 kg
[2022-12-17 03:31] VITALS: BP 143/88
[2022-12-17 03:38] LABS: BILIRUBIN,URINE NEGATIVE (NEGATIVE); CLARITY,URINE CLEAR; COLOR,URINE YELLOW; GLUCOSE, URINE (UA) NEGATIVE (NEGATIVE); KETONES,URINE NEGATIVE (NEGATIVE); LEUKOCYTE ESTERASE ,URINE TRACE (NEGATIVE); NITRITE,URINE NEGATIVE (NEGATIVE); PROTEIN,URINE NEGATIVE (NEGATIVE)
[2022-12-17 03:54] LABS: BACTERIA,URINE NEGATIVE /HPF
--- NOTE | 2022-12-17 03:58 | ED GU-Female ---
General Chief Complaint: - Reproductive Stated Complaint: FLANK PAIN Nursing Triage Note: Pt presents with c/o L lower back pain. She reports hx of kidney stones. Pain initially started on Saturday, she's been taking AZO, tylenol and Ibuprofen. Tonight the pain woke her from her sleep, and she's unable to tolerate it. Source: patient Exam Limitations: no limitations History of Present Illness Date Seen by Provider: Dec 17, 2022 Time Seen by Provider: 03:25 Allergies and Home Medications Allergies Coded Allergies: No Known Drug Allergies (Unverified , 08/22/20) Patient Home Medication List Azelastine HCl (Azelastine HCl) 137 Mcg/0.137 Ml [place].pump, 137 MCG NS BID Prescribed by: MAYNOR BAER on 10/25/20604 Azithromycin (Azithromycin) 250 Mg Tablet, 250 MG PO UD Prescribed by: JEWEL AVILA on 08/22/20 0548 Benzonatate (Tessalon Perles) 100 Mg Capsule, 200 MG PO TID Prescribed by: JEWEL AVILA on 08/22/20547 Benzonatate (Tessalon Perles) 100 Mg Capsule, 200 MG PO TID Prescribed by: MAYNOR BAER on 10/25/20604 Cephalexin (Cephalexin) 500 Mg Tablet, 500 MG PO TID Prescribed by: JEWEL AVILA on 12/17/22 05 Hydrocodone/Acetaminophen (Hydrocodone-Acetamin 5-325 mg) 5 Mg-325 Mg Tablet, 1-2 TAB PO Q4H PRN for PAIN-BREAKTHROUGH Prescribed by: JEWEL AVILA on 12/17/22 05 Methylprednisolone (Medrol) 4 Mg Tab.ds.pk, 4 MG PO UD Prescribed by: MAYNOR BAER on 10/25/20 06 Ondansetron (Ondansetron Odt) 4 Mg Tab.rapdis, 4 MG SL Q4H PRN for NAUSEA/VOMITING Prescribed by: JEWEL AVILA on 12/17/22 05 Promethazine HCl/Codeine (Prometh-Codein 6.25-10 mg/5 ml) 5 Ml Syrup, 5 ML PO Q6H PRN for COUGH Prescribed by: JEWEL AVILA on 08/22/20 0549 Promethazine HCl/Codeine (Prometh-Codein 6.25-10 mg/5 ml) 5 Ml Syrup, 5 ML PO Q4H Prescribed by: MAYNOR BAER on 10/25/20 06 Triamcinolone Acetonide (Nasacort) 10.8 Ml [place], 2 SPRAYS NS BID Prescribed by: MAYNOR BAER on 10/25/20 06 Past Fyfyvos-Ckblzo-Bybzdo Hx Immunizations Up To Date Influenza Vaccine Up-to-Date: Yes; Up-to-Date Seasonal Allergies Seasonal Allergies: Yes Past Medical History Surgeries: Yes (GERD ) Tonsillectomy Respiratory: Yes Asthma Cardiac: No Neurological: No Reproductive Disorders: No Genitourinary: Yes Kidney Stones Gastrointestinal: No Musculoskeletal: No Endocrine: No HEENT: No Cancer: No Psychosocial: Yes Anxiety Integumentary: No Blood Disorders: No Physical Exam Vital Signs Vital Signs - First Documented 12/17/22 03:31 Temp 36.1 Pulse 64 Resp 20 B/P (MAP) 143/88 (106) Capillary Refill : Less Than 3 Seconds Height, Weight, BMI Height: '" Weight: lbs. oz. kg; 24.00 BMI Method: Progress/Results/Core Measures Suspected Sepsis SIRS Temperature: Pulse: 64 Respiratory Rate: 20 Laboratory Tests 12/17/22 03:55: White Blood Count 10.1 Blood Pressure 143 /88 Mean: 106 Laboratory Tests 12/17/22 03:55: Creatinine 0.84, Platelet Count 325, Total Bilirubin 0.3 Results/Orders Lab Results Laboratory Tests Test 12/17/22 03:30 12/17/22 03:55 Range/Units Urine Color YELLOW Urine Clarity CLEAR Urine pH 6.0 5-9 Urine Specific [place] >=1.030 1.016-1.022 Urine Protein NEGATIVE NEGATIVE Urine Glucose (UA) NEGATIVE NEGATIVE Urine Ketones NEGATIVE NEGATIVE Urine Nitrite NEGATIVE NEGATIVE Urine Bilirubin NEGATIVE NEGATIVE Urine Urobilinogen 0.2 < = 1.0 MG/DL Urine Leukocyte Esterase TRACE H NEGATIVE Urine RBC (Auto) 3+ H NEGATIVE Urine RBC 10-25 H /HPF Urine WBC 2-5 /HPF Urine Crystals NONE /LPF Urine Bacteria NEGATIVE /HPF Urine Casts NONE /LPF Urine Mucus MODERATE H /LPF Urine Culture Indicated YES White Blood Count 10.1 4.3-11.0 10^3/uL Red Blood Count 5.03 3.80-5.11 10^6/uL Hemoglobin 14.0 11.5-16.0 g/dL Hematocrit 41 35-52 % Mean Corpuscular Volume 82 80-99 fL Mean Corpuscular Hemoglobin 28 25-34 pg Mean Corpuscular Hemoglobin Concent 34 32-36 g/dL Red Cell Distribution Width 14.4 10.0-14.5 % Platelet Count 325 130-400 10^3/uL Mean Platelet Volume 9.5 9.0-12.2 fL Immature Granulocyte % (Auto) 0 % Neutrophils (%) (Auto) 58 42-75 % Lymphocytes (%) (Auto) 30 12-44 % Monocytes (%) (Auto) 8 0-12 % Eosinophils (%) (Auto) 3 0-10 % Basophils (%) (Auto) 0 0-10 % Neutrophils # (Auto) 5.9 1.8-7.8 10^3/uL Lymphocytes # (Auto) 3.0 1.0-4.0 10^3/uL Monocytes # (Auto) 0.8 0.0-1.0 10^3/uL Eosinophils # (Auto) 0.3 0.0-0.3 10^3/uL Basophils # (Auto) 0.0 0.0-0.1 10^3/uL Immature Granulocyte # (Auto) 0.0 0.0-0.1 10^3/uL Sodium Level 143 135-145 MMOL/L Potassium Level 4.1 3.6-5.0 MMOL/L Chloride Level 110 H 98-107 MMOL/L Carbon Dioxide Level 22 21-32 MMOL/L Anion Gap 11 5-14 MMOL/L Blood Urea Nitrogen 10 7-18 MG/DL Creatinine 0.84 0.60-1.30 MG/DL Estimat Glomerular Filtration Rate 99 BUN/Creatinine Ratio 12 Glucose Level 86 70-105 MG/DL Calcium Level 9.0 8.5-10.1 MG/DL Corrected Calcium 8.8 8.5-10.1 MG/DL Total Bilirubin 0.3 0.1-1.0 MG/DL Aspartate Amino Transf (AST/SGOT) 17 5-34 U/L Alanine Aminotransferase (ALT/SGPT) 19 0-55 U/L Alkaline Phosphatase 81 40-136 U/L Total Protein 6.7 6.4-8.2 GM/DL Albumin 4.2 3.2-4.5 GM/DL My Orders Orders - JEWEL POWERS MD Ua Culture If Indicated (12/17/22 03:25) Ed Iv/Invasive Line Start (12/17/22 03:47) Lactated Ringers (Lr 1000 Ml Iv Solution (12/17/22 04:00) Cbc With Automated Diff (12/17/22 03:47) Comprehensive Metabolic Panel (12/17/22 03:47) Ondansetron Injection (Zofran Injectio (12/17/22 04:00) Ketorolac Injection (Toradol Injection) (12/17/22 04:00) Ct Abd/Pelvis Wo(Kidney Stone) (12/17/22 03:54) Urine Culture (12/17/22 03:30) Medications Given in ED Current Medications Medications Dose Ordered Sig/Aiden Route Start Time Stop Time Status Last Admin Dose Admin Ketorolac Tromethamine 30 mg ONCE ONCE IVP 12/17/22 04:00 12/17/22 04:01 DC 12/17/22 03:58 30 MG Lactated Ringer's 1,000 ml @ 0 mls/hr Q0M ONCE IV 12/17/22 04:00 12/17/22 04:01 DC 12/17/22 03:58 0 MLS/HR Ondansetron HCl 8 mg ONCE ONCE IVP 12/17/22 04:00 12/17/22 04:01 DC 12/17/22 03:58 8 MG Vital Signs/I&O 12/17/22 03:31 Temp 36.1 Pulse 64 Resp 20 B/P (MAP) 143/88 (106) Capillary Refill : Less Than 3 Seconds Blood Pressure Mean: 106 Departure Impression Primary Impression: Left ureteral stone Additional Impression: Nausea & vomiting Qualified Codes: R11.2 - Nausea with vomiting, unspecified Disposition: HOME, SELF-CARE Condition: Improved Departure-Patient Inst. Decision time for Depature: 05:23 Referrals: [facility] (PCP/Family) Primary Care Physician Patient Instructions: Kidney Stone, Adult ED Add. Discharge Instructions: You have 2 kidney stones. One is high in the left ureter, and one is low in the left ureter by the bladder. Drink plenty of clear liquids to stay well-hydrated. Follow-up with your primary care provider and a urologist as soon as possible. Complete your antibiotics as prescribed to prevent infection. For primary pain control you may take ibuprofen up to 600 mg every 6 hours as needed. Use hydrocodone as prescribed for breakthrough pain. Return to the emergency room if your pain pain or vomiting are uncontrolled or if you develop new symptoms such as fever. Strain your urine and bring any stones collected to your appointment. All discharge instructions reviewed with patient and/or family. Voiced understanding. Scripts Ondansetron (Ondansetron Odt) 4 Mg Tab.rapdis 4 MG SL Q4H PRN for NAUSEA/VOMITING, #10 TAB 1 Refill Prov: JEWEL POEWRS MD 12/17/22 Hydrocodone/Acetaminophen (Hydrocodone-Acetamin 5-325 mg) 5 Mg-325 Mg Tablet 1-2 TAB PO Q4H PRN for PAIN-BREAKTHROUGH, #20 TAB Prov: JEWEL POWERS MD 12/17/22 Cephalexin (Cephalexin) 500 Mg Tablet 500 MG PO TID, #20 TAB Prov: JEWEL POWERS MD 12/17/22 Copy Copies To 1: [facility]/JEWEL DANIEL MD Dec 17, 2022 03:58
[2022-12-17] MEDS ORDERED: KETOROLAC 30 MG/ML VIAL IVP ONE (04:00)
[2022-12-17] MEDS ORDERED: ONDANSETRON 4 MG/2 ML (SDV) Z0FRAN IVP ONE (04:00)
[2022-12-17] MEDS ORDERED: LACTATED RINGERS 1,000 ML IV ONE (04:00)
[2022-12-17 04:11] LABS: BASOPHILS % (AUTO) 0 % (0-10); EOSINOPHILS # (AUTO) 0.3 10^3/uL (0.0-0.3); EOSINOPHILS % (AUTO) 3 % (0-10); HEMATOCRIT 41 % (35-52); LYMPHOCYTES % (AUTO) 30 % (12-44); MEAN CORPUSCULAR HEMOGLOBIN 28 pg (25-34); MEAN CORPUSCULAR HGB CONC 34 g/dL (32-36); MEAN CORPUSCULAR VOLUME 82 fL (80-99); MEAN PLATELET VOLUME 9.5 fL (9.0-12.2); MONOCYTES # (AUTO) 0.8 10^3/uL (0.0-1.0); MONOCYTES % (AUTO) 8 % (0-12); NEUTROPHILS # (AUTO) 5.9 10^3/uL (1.8-7.8); NEUTROPHILS % (AUTO) 58 % (42-75); PLATELET COUNT 325 10^3/uL (130-400); WHITE BLOOD COUNT 10.1 10^3/uL (4.3-11.0)
[2022-12-17 04:22] LABS: ALBUMIN 4.2 GM/DL (3.2-4.5); POTASSIUM 4.1 MMOL/L (3.6-5.0)
[2022-12-17 04:24] LABS: TOTAL PROTEIN 6.7 GM/DL (6.4-8.2)
[2022-12-17 04:26] LABS: BILIRUBIN,TOTAL 0.3 MG/DL (0.1-1.0)
[2022-12-17 04:28] LABS: CREATININE SERUM 0.84 MG/DL (0.60-1.30)
[2022-12-17] MEDS ORDERED: ONDA4TAB11 SL (05:26)
[2022-12-17] MEDS ORDERED: ACHD5005 PO (05:26)
[2022-12-17] MEDS ORDERED: CEPH500T PO (05:26)
[2022-12-17] MEDS ORDERED: morphine INJ 10 MG/ML 1ML (SYR OR VIAL) IVP STA (05:51)
--- NOTE | 2022-12-17 06:21 | Diagnostic Imaging Report ---
EXAMINATION: CT abdomen and pelvis without contrast. TECHNIQUE: Multiple contiguous axial images were obtained through the abdomen and pelvis without the use of intravenous contrast. All CT scans use one or more of the following dose optimizing techniques: automated exposure control, MA and/or KvP adjustment based on patient size and exam type or iterative reconstruction. HISTORY: Flank pain, kidney stone suspected COMPARISON: 02/20/2021 FINDINGS: Lung bases: The lung bases are clear. Solid organs: The liver is normal. The gallbladder is normal. There is no biliary ductal dilation. Pancreas is normal. Spleen is normal. Adrenal glands are normal. There is a 0.5 cm calculus within the proximal left ureter resulting in mild left hydronephrosis. Nonobstructing 0.2 cm right renal calculus. There may be an additional 0.4 cm calculus near the left ureterovesicular junction. Bowel: The stomach and small bowel are normal without obstruction. The colon and appendix are normal. Peritoneum: There is no intraperitoneal free fluid or free air. No suspicious lymphadenopathy. Vasculature: Normal without aneurysm. Musculoskeletal: No suspicious osseous lesion or compression fracture. Pelvis: An IUD is present within the uterus. The urinary bladder is normal. IMPRESSION: 1. A 0.5 cm calculus within the proximal left ureter and possibly additional stone at the left ureterovesicular junction resulting in mild left hydronephrosis and hydroureter. 2. Additional nonobstructing renal calculi measuring up to 0.2 cm. 3. Agree with preliminary interpretation. Dictated by: Dictated on workstation # [id number]
== END 2022-12-17 06:07 | disposition home or self-care (01) ==
LOC: EDUNIT# 03:18 → ER 03:21
DX: N20.1 Calculus of ureter (principal)
CPT/HCPCS: 36415; 74176; 80053; 81000; 84703; 85025; 87088

== ENCOUNTER 2022-12-21 17:20 | Emergency (ER) | payer BC ==
[~2022-12-21] VITALS: Ht 154 cm; Wt 58.9 kg
[~2022-12-21 17:20] MED LIST changes: +ACHD5005 PO; +CEPH500T PO; +ONDA4TAB11 SL
[2022-12-21 17:46] LABS: BILIRUBIN,URINE NEGATIVE (NEGATIVE); CLARITY,URINE TURBID; COLOR,URINE RED; GLUCOSE, URINE (UA) NEGATIVE (NEGATIVE); KETONES,URINE NEGATIVE (NEGATIVE); LEUKOCYTE ESTERASE ,URINE 1+ (NEGATIVE); NITRITE,URINE NEGATIVE (NEGATIVE); PH,URINE 6.5 (5-9); PROTEIN,URINE 3+ (NEGATIVE)
[2022-12-21 17:58] LABS: BACTERIA,URINE TRACE /HPF; RBC,URINE >100 /HPF; WBC,URINE RARE /HPF
[2022-12-21 18:15] LABS: BASOPHILS % (AUTO) 0 % (0-10); EOSINOPHILS # (AUTO) 0.2 10^3/uL (0.0-0.3); EOSINOPHILS % (AUTO) 2 % (0-10); HEMATOCRIT 40 % (35-52); HEMOGLOBIN 13.5 g/dL (11.5-16.0); LYMPHOCYTES % (AUTO) 37 % (12-44); MEAN CORPUSCULAR HEMOGLOBIN 28 pg (25-34); MEAN CORPUSCULAR HGB CONC 33 g/dL (32-36); MEAN CORPUSCULAR VOLUME 83 fL (80-99); MEAN PLATELET VOLUME 10.1 fL (9.0-12.2); MONOCYTES # (AUTO) 0.9 10^3/uL (0.0-1.0); MONOCYTES % (AUTO) 7 % (0-12); NEUTROPHILS # (AUTO) 7.2 10^3/uL (1.8-7.8); NEUTROPHILS % (AUTO) 54 % (42-75); PLATELET COUNT 335 10^3/uL (130-400); WHITE BLOOD COUNT 13.4 10^3/uL (4.3-11.0)
[2022-12-21] MEDS ORDERED: ONDANSETRON 4 MG/2 ML (SDV) Z0FRAN IVP ONE (18:15)
[2022-12-21] MEDS ORDERED: KETOROLAC 15 MG/ML VIAL IVP ONE (18:15)
--- NOTE | 2022-12-21 18:19 | ED Back Pain ---
General Chief Complaint: Back Problems Stated Complaint: FLANK PAIN, DIFFICULTY URINATING Nursing Triage Note: PT AMBULATORY TO ER WITH VISITOR. PT REPORTS WORSENING L FLANK PAIN, HX OF KIDNEY STONES. PT REPORTS HAD A STENT PULLED YESTERDAY, +N/V. PT SEE'S UROLOGIST DR SINGLETON AT [facility]. Source of Information: Patient Exam Limitations: No Limitations (YECENIA FELTON APRN) History of Present Illness Date Seen by Provider: Dec 21, 2022 Time Seen by Provider: 17:40 Initial Comments 22-year-old female presents to the ED with severe left flank pain and mid lower abdominal pain. States she was seen on Saturday and diagnosed with kidney stones, she had lithotripsy yesterday. States that she had a stent that was falling out, she called the clinic and they told her to go ahead and pulled out. States she has been unable to urinate since 2 PM, states she has just been dribbling. She was able to give a urine sample here. States she has also been vomiting most of the day. Took Phenergan and hydrocodone at 2 PM. She took her Zofran earlier in the day. Denies fevers, chest pain, shortness of air. (YECENIA FELTON APRN) Allergies and Home Medications Allergies Coded Allergies: No Known Drug Allergies (Unverified , 08/22/20) Patient Home Medication List Home Medication List Reviewed: Yes (YECENIA FELTON APRN) Azelastine HCl (Azelastine HCl) 137 Mcg/0.137 Ml [place].pump, 137 MCG NS BID Prescribed by: MAYNOR BAER on 10/25/20604 Azithromycin (Azithromycin) 250 Mg Tablet, 250 MG PO UD Prescribed by: JEWEL AVILA on 08/22/20 0548 Benzonatate (Tessalon Perles) 100 Mg Capsule, 200 MG PO TID Prescribed by: JEWEL AVILA on 08/22/2048 Benzonatate (Tessalon Perles) 100 Mg Capsule, 200 MG PO TID Prescribed by: MAYNOR BAER on 10/25/20 0605 Cephalexin (Cephalexin) 500 Mg Tablet, 500 MG PO TID Prescribed by: JEWEL AVILA on 12/17/22 0526 Hydrocodone/Acetaminophen (Hydrocodone-Acetamin 5-325 mg) 5 Mg-325 Mg Tablet, 1- 2 TAB PO Q4H PRN for PAIN-BREAKTHROUGH Prescribed by: JEWEL AVILA on 12/17/22 05 Methylprednisolone (Medrol) 4 Mg Tab.ds.pk, 4 MG PO UD Prescribed by: MAYNOR BAER on 10/25/20 06 Ondansetron (Ondansetron Odt) 4 Mg Tab.rapdis, 4 MG SL Q4H PRN for NAUSEA/VOM ITING Prescribed by: JEWEL AVILA on 12/17/22 05 Promethazine HCl/Codeine (Prometh-Codein 6.25-10 mg/5 ml) 5 Ml Syrup, 5 ML PO Q6H PRN for COUGH Prescribed by: JEWEL AVILA on 08/22/20 0549 Promethazine HCl/Codeine (Prometh-Codein 6.25-10 mg/5 ml) 5 Ml Syrup, 5 ML PO Q4H Prescribed by: MAYNOR BAER on 10/25/20 06 Tamsulosin HCl (Flomax) 0.4 Mg Cap, 0.4 MG PO DAILY Prescribed by: Yecenia Felton on 12/21/222050 Triamcinolone Acetonide (Nasacort) 10.8 Ml [place], 2 SPRAYS NS BID Prescribed by: MAYNOR BAER on 10/25/20 06 Review of Systems Constitutional: see HPI (YECENIA FELTON APRN) Past Vvwhpfs-Cwxygb-Diftrr Hx Patient Social History Tobacco Use?: No Use of E-Cig and/or Vaping dev: No Substance use?: No Alcohol Use?: No Pt feels they are or have been: No (YECENIA FELTON APRN) Immunizations Up To Date First/Initial COVID19 Vaccinat: RECEIVED, UNK WHEN COVID19 Vaccine Heel Wheeler: UNK (YECENIA FELTON APRN) Seasonal Allergies Seasonal Allergies: Yes (YECENIA FELTON APRN) Past Medical History Surgeries: Yes (GERD ) Tonsillectomy Respiratory: Yes Asthma Cardiac: No Neurological: No Reproductive Disorders: No Genitourinary: Yes Kidney Stones Gastrointestinal: No Musculoskeletal: No Endocrine: No HEENT: No Cancer: No Psychosocial: Yes Anxiety Integumentary: No Blood Disorders: No (YECENIA FELTON APRN) Physical Exam Vital Signs Vital Signs - First Documented 12/21/22 17:22 Temp 36.5 Pulse 93 Resp 20 B/P (MAP) 121/87 (98) Pulse Ox 98 O2 Delivery Room Air (JEWEL POWRES MD) Vital Signs Capillary Refill : (YECENIA FELTON APRN) Height, Weight, BMI Height: '" Weight: lbs. oz. kg; 24.00 BMI Method: General Appearance: Moderate Distress Neck: Normal Inspection, Supple Cardiovascular: Regular Rate, Rhythm, No Edema, No Gallop, No JVD, No Murmur Respiratory: Lungs Clear, Normal Breath Sounds, No Accessory Muscle Use, No Respiratory Distress Gastrointestinal: Normal Bowel Sounds, Soft, Tenderness (Suprapubic region) Back: CVA Tenderness (R) (Mild) Neurologic/Psychiatric: Alert, Normal Mood/Affect Skin: Normal Color, Warm/Dry (YECENIA FELTON APRN) Progress/Results/Core Measures Results/Orders Lab Results Laboratory Tests Test 12/21/22 17:34 12/21/22 18:21 12/21/22 18:27 Range/Units White Blood Count 13.4 H 4.3-11.0 10^3/uL Red Blood Count 4.86 3.80-5.11 10^6/uL Hemoglobin 13.5 11.5-16.0 g/dL Hematocrit 40 35-52 % Mean Corpuscular Volume 83 80-99 fL Mean Corpuscular Hemoglobin 28 25-34 pg Mean Corpuscular Hemoglobin Concent 33 32-36 g/dL Red Cell Distribution Width 14.0 10.0-14.5 % Platelet Count 335 130-400 10^3/uL Mean Platelet Volume 10.1 9.0-12.2 fL Immature Granulocyte % (Auto) 0 % Neutrophils (%) (Auto) 54 42-75 % Lymphocytes (%) (Auto) 37 12-44 % Monocytes (%) (Auto) 7 0-12 % Eosinophils (%) (Auto) 2 0-10 % Basophils (%) (Auto) 0 0-10 % Neutrophils # (Auto) 7.2 1.8-7.8 10^3/uL Lymphocytes # (Auto) 5.0 H 1.0-4.0 10^3/uL Monocytes # (Auto) 0.9 0.0-1.0 10^3/uL Eosinophils # (Auto) 0.2 0.0-0.3 10^3/uL Basophils # (Auto) 0.0 0.0-0.1 10^3/uL Immature Granulocyte # (Auto) 0.1 0.0-0.1 10^3/uL Urine Color RED H Urine Clarity TURBID Urine pH 6.5 5-9 Urine Specific [place] 1.020 1.016-1.022 Urine Protein 3+ H NEGATIVE Urine Glucose (UA) NEGATIVE NEGATIVE Urine Ketones NEGATIVE NEGATIVE Urine Nitrite NEGATIVE NEGATIVE Urine Bilirubin NEGATIVE NEGATIVE Urine Urobilinogen 1.0 < = 1.0 MG/DL Urine Leukocyte Esterase 1+ H NEGATIVE Urine RBC (Auto) 3+ H NEGATIVE Urine RBC >100 H /HPF Urine WBC RARE /HPF Urine Squamous Epithelial Cells 10-25 H /HPF Urine Crystals NONE /LPF Urine Bacteria TRACE /HPF Urine Casts NONE /LPF Urine Mucus NEGATIVE /LPF Urine Culture Indicated NO Sodium Level 142 135-145 MMOL/L Potassium Level 3.5 L 3.6-5.0 MMOL/L Chloride Level 106 98-107 MMOL/L Carbon Dioxide Level 24 21-32 MMOL/L Anion Gap 12 5-14 MMOL/L Blood Urea Nitrogen 8 7-18 MG/DL Creatinine 0.90 0.60-1.30 MG/DL Estimat Glomerular Filtration Rate 92 BUN/Creatinine Ratio 9 Glucose Level 86 70-105 MG/DL Calcium Level 9.3 8.5-10.1 MG/DL Corrected Calcium 8.9 8.5-10.1 MG/DL Total Bilirubin 0.3 0.1-1.0 MG/DL Aspartate Amino Transf (AST/SGOT) 19 5-34 U/L Alanine Aminotransferase (ALT/SGPT) 16 0-55 U/L Alkaline Phosphatase 85 40-136 U/L Total Protein 7.0 6.4-8.2 GM/DL Albumin 4.5 3.2-4.5 GM/DL Urine Test NEGATIVE NEGATIVE Lactic Acid Level 1.32 0.50-2.00 MMOL/L (JEWEL POWERS MD) My Orders Orders - JEWEL POWERS MD Ua Culture If Indicated (2/10/23 17:25) (JEWEL POWERS MD) Vital Signs/I&O 12/21/22 12/21/22 17:22 20:53 Temp 36.5 Pulse 93 76 Resp 20 18 B/P (MAP) 121/87 (98) 107/62 Pulse Ox 98 99 O2 Delivery Room Air Room Air (JEWEL POWERS MD) Blood Pressure Mean: 98 Progress Progress Note #1: Time: 18:15 Progress Note Patient seen and evaluated, sitting on bed, moderate distress. Based on exam and symptoms, work-up initiated including CBC, CMP, lactic acid, UA, and urine . IV fluids, Zofran, and Toradol ordered. Considered CT, but deferred due to recent CT scan. Progress Note #2: Time: 19:10 Progress Note Labs reviewed. CBC grossly normal, slightly elevated WBC at 13.4. CMP grossly normal, slightly decreased potassium 3.5. UA shows 3+ protein, 1+ leukocytes, greater than 100 RBC, rare WBCs, 10-25 squamous epithelial cells, trace bacteria. Not concern for urinary tract infection. Patient still having pain, fentanyl. Bladder scan showed only 11 cc of urine. Patient likely dehydrated, that is why she has not been urinating. Second liter of fluids ordered. Progress Note #3: Time: 20:00 Progress Note Spoke with patient regarding results. Patient states she was able to urinate normally after fluids. Will page urology at [facility] to see if they recommend any thing else. Progress Note #4: Time: 20:46 Progress Note Patient given recommendation from Dr. Locke, urologist. Will discharge with t amsulosin. Patient instructed to take ibuprofen for pain and inflammation. Discharge instructions and return precautions provided (YECENIA FELTON APRN) Departure Communication (Admissions) Time/Spoke to Consulting Phy: 20:44 Urology at [facility] paged at 1958. Dr. Locke, urology, return the phone call at this time. He recommends tamsulosin daily and NSAIDs to help with ureteral spasm. Instructed to have patient call the office on Saturday if she is not feeling better by then to move up her appointment. Patient currently has a follow up appointment on January 08. (YECENIA FELTON APRN) Impression Primary Impression: Kidney stone Disposition: HOME, SELF-CARE Condition: Stable Departure-Patient Inst. Decision time for Depature: 20:48 (YECENIA FELTON APRN) Referrals: [facility] [place] (PCP/Family) Primary Care Physician Patient Instructions: Kidney Stones in Adults Add. Discharge Instructions: Take Flomax once daily as prescribed. Take ibuprofen 800 mg 3 times a day with food. Continue taking your pain medications as needed. Increase your water intake. Call the clinic on Saturday if you are not feeling better to move up your appointment. Return for uncontrollable pain, inability to urinate, or any other new, concerning, or worsening symptoms. All discharge instructions reviewed with patient and/or family. Voiced understanding. Scripts Tamsulosin HCl (Flomax) 0.4 Mg Cap 0.4 MG PO DAILY for 14 Days, #14 CAP 0 Refills Prov: YECENIA FELTON APRN 12/21/22 ATTENDING PHYSICIAN NOTE: I was physically present as attending physician in the emergency department during the care of this patient. I discussed work-up results and clinical presentation with Yecenia Felton, and I advised consultation with urology. Treatment plan was reviewed. I did not personally interview or examine this patient, and I was not otherwise directly involved in the decision making or delivery of care for this patient. (JEWEL POWERS MD) YECENIA FELTON APRN Dec 21, 2022 18:19 JEWEL POWERS MD Dec 22, 2022 22:47
[2022-12-21 18:24] LABS: ALBUMIN 4.5 GM/DL (3.2-4.5)
[2022-12-21 18:25] LABS: POTASSIUM 3.5 MMOL/L (3.6-5.0)
[2022-12-21 18:26] LABS: CALCIUM 9.3 MG/DL (8.5-10.1)
[2022-12-21 18:29] LABS: BILIRUBIN,TOTAL 0.3 MG/DL (0.1-1.0)
[2022-12-21 18:30] LABS: CREATININE SERUM 0.9 MG/DL (0.60-1.30)
[2022-12-21] MEDS ORDERED: NS IV 1000 ML 1,000 ML IV SCH ×2 (18:30→19:15)
[2022-12-21] MEDS ORDERED: fentaNYL INJ 100 MCG/2 ML AMP IVP STA (19:06)
[2022-12-21] MEDS ORDERED: TAMSULOSIN 0.4 MG (FLOMAX) CAP PO ONE (20:45)
[2022-12-21] MEDS ORDERED: TMSL.4C PO (20:51)
[2022-12-21 20:53] VITALS: BP 107/62
== END 2022-12-21 20:54 | disposition home or self-care (01) ==
LOC: EDUNIT# 17:20 → ER 17:21
DX: N20.0 Calculus of kidney (principal); Z87.442 Personal history of urinary calculi
CPT/HCPCS: 36415; 80053; 81000; 83605; 84703; 85025; 96374; 96375; 99283